=== PATIENT | male | born 1960 | race Caucasian/White ===

== ENCOUNTER → 2019-12-06 | Outpatient (CLI) | payer OTHER ==
[~2019-12-06] MED LIST: ALBIPROI INH; ALBU3IS INH; ALBU90OI61 INH; CRUTCH3 USE; GAVILAX17 GM PO; HYDACE7.5 PO; IBUP800 PO; OXYACE5T PO; PRED20 PO
[2019-12-06 17:42] LABS: BASOPHILS ABSOLUTE AUTO 0.08 K/mm3 (0.00-0.23); BASOPHILS PERCENT AUTO 1 % (0-2); EOSINOPHILS PERCENT AUTO 3 % (0-6); Hematocrit 45.5 % (37.0-53.0); Hemoglobin 15.3 g/dL (13.5-17.5); IMMATURE GRAN ABSOLUTE AUTO 0.02 K/mm3 (0.00-0.10); IMMATURE GRAN PERCENT AUTO 0 % (0-1); LYMPHOCYTES ABSOLUTE AUTO 2.09 K/mm3 (0.84-5.20); LYMPHOCYTES PERCENT AUTO 29 % (21-46); MONOCYTES ABSOLUTE AUTO 0.58 K/mm3 (0.16-1.47); MONOCYTES PERCENT AUTO 8 % (4-13); Mean Corpuscular HGB 29.9 pg (26.0-34.0); Mean Corpuscular HGB Conc 33.6 g/dL (31.5-36.5); Mean Corpuscular Volume 89 fL (80-100); Mean Platelet Volume 10.5 fL (9.1-12.4); NEUTROPHILS ABSOLUTE AUTO 4.19 K/mm3 (1.96-9.15); NEUTROPHILS PERCENT AUTO 59 % (41-73); Platelet Count 173 K/mm3 (150-400); RDW Standard Deviation 42.4 fL (35.1-46.3); Red Blood Cell Count 5.12 M/mm3 (4.30-5.90); White Blood Cell Count 7.16 K/mm3 (4.00-11.30)
[2019-12-06 17:53] LABS: Alanine Aminotransfer (ALT/SGP 42 U/L (12-78); Albumin, Blood 3.8 g/dL (3.4-5.0); Alk Phos 87 U/L (40-126); Anion Gap 11 mmol/L (6-16); Aspartate Aminotrans (AST/SGOT 22 U/L (12-37); Bilirubin, Total 0.3 mg/dL (0.1-1.0); Blood Urea Nitrogen 17 mg/dL (8-24); Bun/Creatinine Ratio 16.5 (12.0-20.0); CO2, Blood 26 mmol/L (21-32); Calcium, Blood 8.9 mg/dL (8.5-10.1); Chloride, Blood 103 mmol/L (98-108); Creatinine, Blood 1.03 mg/dL (0.60-1.20); Globulin, Blood 3.9 g/dL (2.2-4.0); Glomerular Filtration Rate >60 (60-); Glucose, Blood 125 mg/dL (70-99); Potassium, Blood 3.6 mmol/L (3.5-5.5); Sodium, Blood 140 mmol/L (136-145); Total Protein, Blood 7.7 g/dL (6.4-8.2)
[2019-12-06 18:35] LABS: International Normalized Ratio 0.96; Prothrombin Time Results 10.3 Sec (9.7-11.5)
== END ==
LOC: LAB EV 17:36 → LAB SHORT 17:36
PROVIDERS: Family Medicine
DX: Z01.818 Encounter for other preprocedural examination (principal)
CPT/HCPCS: 80053; 85025; 85610; 85730

== ENCOUNTER 2019-12-14 11:23 | Day surgery (SDC) | payer OTHER ==
[~2019-12-14] VITALS: Ht 175.3 cm; Wt 102.0 kg
--- NOTE | 2019-12-14 14:56 | NUR ---
12/14/19 1456 Leighann Elizondo REMOVED AT 1455.
--- NOTE | 2019-12-14 15:16 | NUR ---
12/14/19 1516 Leighann Elizondo PT TRANSFERED TO THE CHAIR WITH STAND BY ASSIST FROM SUDHIR. MADELINE. PT HAS OP LEG ELEVATED WITH A PILLOW UNDER THE KNEE AND POLAR UNIT IS ON AND RUNNING. PT DENIES NAUSEA AND IS TOLERATING PO CRACKERS AND FLUIDS WELL. PT COMPLAINS OF PAIN 04/21 AND STATES "I FEEL IT BUT IT DOESN'T REALLY HURT." RN TREATED PAIN WITH PO NORCO PER DR'S ORDERS (SEE EMAR). PT'S CALLED HOWEVER DID NOT ANSWER.
== END 2019-12-14 15:48 | disposition home or self-care (01) ==
LOC: ORSCSDS 11:23
PROVIDERS: Orthopaedic Surgery
PROC: 0SBD4ZZ Excision of Left Knee Joint, Percutaneous Endoscopic Approach (ICD-10-PCS; principal; 2019-12-14 12:30)
DX: S83.242A Other tear of medial meniscus, current injury, left knee, initial encounter (principal); M17.12 Unilateral primary osteoarthritis, left knee; M22.42 Chondromalacia patellae, left knee; I10 Essential (primary) hypertension; G47.33 Obstructive sleep apnea (adult) (pediatric); F17.210 Nicotine dependence, cigarettes, uncomplicated
CPT/HCPCS: A9270-GY; J0171; J0690; J1100; J2250; J2405; J2704; J2795; J3010; J7120

== ENCOUNTER 2020-01-16 10:20 | Emergency (ER) | payer OTHER ==
[~2020-01-16] VITALS: Ht 175.3 cm; Wt 102.1 kg
[2020-01-16] MEDS ORDERED: PROMETH-CODEIN 65 ML PO (10:36)
[2020-01-16] MEDS ORDERED: DOXYCYCLINE HY100 M1 PO (10:36)
[2020-01-16] MEDS ORDERED: Ventolin/Prove6.7 GM INH (10:37)
[2020-01-16 11:04] LABS: BASOPHILS ABSOLUTE AUTO 0.06 K/mm3 (0.00-0.23); BASOPHILS PERCENT AUTO 1 % (0-2); EOSINOPHILS ABSOLUTE AUTO 0.51 K/mm3 (0.00-0.68); EOSINOPHILS PERCENT AUTO 8 % (0-6); Hematocrit 46.3 % (37.0-53.0); IMMATURE GRAN ABSOLUTE AUTO 0.03 K/mm3 (0.00-0.10); IMMATURE GRAN PERCENT AUTO 1 % (0-1); LYMPHOCYTES PERCENT AUTO 24 % (21-46); MONOCYTES ABSOLUTE AUTO 0.61 K/mm3 (0.16-1.47); MONOCYTES PERCENT AUTO 10 % (4-13); Mean Corpuscular HGB 29.4 pg (26.0-34.0); Mean Corpuscular HGB Conc 32.4 g/dL (31.5-36.5); Mean Corpuscular Volume 91 fL (80-100); Mean Platelet Volume 10.3 fL (9.1-12.4); NEUTROPHILS ABSOLUTE AUTO 3.68 K/mm3 (1.96-9.15); NEUTROPHILS PERCENT AUTO 58 % (41-73); Platelet Count 180 K/mm3 (150-400); RDW Standard Deviation 43.7 fL (35.1-46.3); Red Blood Cell Count 5.11 M/mm3 (4.30-5.90); White Blood Cell Count 6.39 K/mm3 (4.00-11.30)
[2020-01-16 11:38] LABS: Alanine Aminotransfer (ALT/SGP 44 U/L (12-78); Albumin/Globulin Ratio 1.1 (0.8-1.8); Alk Phos 87 U/L (50-136); Anion Gap 6 mmol/L (6-16); Aspartate Aminotrans (AST/SGOT 25 U/L (12-37); Bilirubin, Total 0.3 mg/dL (0.1-1.0); Blood Urea Nitrogen 21 mg/dL (8-24); Bun/Creatinine Ratio 25.5 (12.0-20.0); CO2, Blood 27 mmol/L (21-32); Calcium, Blood 9.3 mg/dL (8.5-10.1); Chloride, Blood 108 mmol/L (98-108); Creatinine, Blood 0.82 mg/dL (0.60-1.20); Globulin, Blood 3.6 g/dL (2.2-4.0); Glomerular Filtration Rate >60 (60-); Glucose, Blood 95 mg/dL (70-99); Potassium, Blood 4.2 mmol/L (3.5-5.5); Sodium, Blood 141 mmol/L (136-145); Total Protein, Blood 7.6 g/dL (6.4-8.2); Troponin I <0.015 ng/mL (0.000-0.040)
[2020-01-16] MEDS ORDERED: Prednisone20 MG PO (14:05)
== END 2020-01-16 17:25 | disposition home or self-care (01) ==
LOC: ER 10:20
PROVIDERS: Emergency Medicine
DX: J18.9 Pneumonia, unspecified organism (principal); J98.01 Acute bronchospasm; F17.210 Nicotine dependence, cigarettes, uncomplicated
CPT/HCPCS: 36415; 71045; 80053; 83880; 84484; 85025; 93005; 93010; 94644; 94645; 94664; 96374; 99284-25; J2930

== ENCOUNTER 2020-05-25 14:19 | Inpatient (IN) | payer OTHER ==
[~2020-05-25] VITALS: Ht 175.3 cm; Wt 102.1 kg
[~2020-05-25 14:19] MED LIST changes: +ALBU2.5V5 NEB; +DOXYCYCLINE HY100 M1 PO; +FLUT1DIS5 INH; +METF500 PO; +PROMETH-CODEIN 65 ML PO; +Prednisone10 MG PO; +Prednisone20 MG PO; +Ventolin/Prove6.7 GM INH
[2020-05-25 15:26] LABS: BASOPHILS ABSOLUTE AUTO 0.06 K/mm3 (0.00-0.23); BASOPHILS PERCENT AUTO 1 % (0-2); EOSINOPHILS ABSOLUTE AUTO 0.48 K/mm3 (0.00-0.68); EOSINOPHILS PERCENT AUTO 7 % (0-6); Hematocrit 46.1 % (37.0-53.0); Hemoglobin 14.6 g/dL (13.5-17.5); IMMATURE GRAN ABSOLUTE AUTO 0.03 K/mm3 (0.00-0.10); IMMATURE GRAN PERCENT AUTO 1 % (0-1); LYMPHOCYTES ABSOLUTE AUTO 1.34 K/mm3 (0.84-5.20); LYMPHOCYTES PERCENT AUTO 21 % (21-46); MONOCYTES ABSOLUTE AUTO 0.56 K/mm3 (0.16-1.47); MONOCYTES PERCENT AUTO 9 % (4-13); Mean Corpuscular HGB 28.9 pg (26.0-34.0); Mean Corpuscular HGB Conc 31.7 g/dL (31.5-36.5); Mean Corpuscular Volume 91 fL (80-100); Mean Platelet Volume 10.1 fL (9.1-12.4); NEUTROPHILS ABSOLUTE AUTO 4.08 K/mm3 (1.96-9.15); NEUTROPHILS PERCENT AUTO 62 % (41-73); Platelet Count 168 K/mm3 (150-400); RDW Coefficient Variation 13.2 % (11.7-14.2); RDW Standard Deviation 44.7 fL (35.1-46.3); Red Blood Cell Count 5.06 M/mm3 (4.30-5.90); White Blood Cell Count 6.55 K/mm3 (4.00-11.30)
[2020-05-25 15:40] LABS: Base Excess Venous 0.9 mmol/L; Bicarbonate Venous 24.5 mmol/L (24.0-30.0); PCO2 Venous 47.8 mmHg (38-42); PO2 Venous 72.3 mmHg (38-42); pH Blood Venous 7.35 (7.34-7.37)
[2020-05-25 15:43] LABS: Alanine Aminotransfer (ALT/SGP 34 U/L (12-78); Albumin, Blood 3.7 g/dL (3.4-5.0); Albumin/Globulin Ratio 1.1 (0.8-1.8); Alk Phos 91 U/L (50-136); Anion Gap 4 mmol/L (6-16); Aspartate Aminotrans (AST/SGOT 21 U/L (12-37); Bilirubin, Total 0.4 mg/dL (0.1-1.0); Blood Urea Nitrogen 20 mg/dL (8-24); Bun/Creatinine Ratio 21.5 (12.0-20.0); CO2, Blood 28 mmol/L (21-32); Calcium, Blood 8.6 mg/dL (8.5-10.1); Chloride, Blood 108 mmol/L (98-108); Creatinine, Blood 0.93 mg/dL (0.60-1.20); Globulin, Blood 3.3 g/dL (2.2-4.0); Glomerular Filtration Rate >60 (60-); Glucose, Blood 90 mg/dL (70-99); Potassium, Blood 3.6 mmol/L (3.5-5.5); Sodium, Blood 140 mmol/L (136-145); Troponin I <0.015 ng/mL (0.000-0.040)
[2020-05-25 19:52] LABS: Source, Urine Voided
[2020-05-25 20:06] LABS: Appearance, Urine Clear (Clear); Bilirubin, Urine Neg (Neg); Blood, Urine Neg (Neg); Color, Urine Yellow (P-Yellow); Glucose Qualitative, Urine Neg (Neg); Ketones, Urine Neg (Neg); Leukocyte Esterase, Urine Neg (Neg); Nitrite, Urine Neg (Neg); Protein, Urine 1+ (Neg); Specific Gravity, Urine 1.015 (1.003-1.022); Urobilinogen, Urine NORM (Normal); pH, Urine 6.5 (5.0-8.0)
[2020-05-25 22:46] LABS: Adenovirus Not Detected (NOT DETECT); Bordetella pertussis Not Detected (NOT DETECT); Chlamydophila pneumoniae Not Detected (NOT DETECT); Coronavirus 229E Not Detected (NOT DETECT); Coronavirus HKU1 Not Detected (NOT DETECT); Coronavirus NL63 Not Detected (NOT DETECT); Coronavirus OC43 Not Detected (NOT DETECT); Human Metapneumovirus Not Detected (NOT DETECT); Human Rhinovirus/Enterovirus Not Detected (NOT DETECT); Influenza A/2009-H1 Not Detected (NOT DETECT); Influenza A/H1 Not Detected (NOT DETECT); Influenza A/H3 Not Detected (NOT DETECT); Influenza B Not Detected (NOT DETECT); Mycoplasma pneumoniae Not Detected (NOT DETECT); Parainfluenza Virus 1 Not Detected (NOT DETECT); Parainfluenza Virus 2 Not Detected (NOT DETECT); Parainfluenza Virus 3 Not Detected (NOT DETECT); Parainfluenza Virus 4 Not Detected (NOT DETECT); Respiratory Syncytial Virus Not Detected (NOT DETECT)
[2020-05-26 05:07] LABS: Hemoglobin 14.4 g/dL (13.5-17.5); Mean Corpuscular HGB 29.1 pg (26.0-34.0); Mean Corpuscular Volume 91 fL (80-100); Mean Platelet Volume 10.3 fL (9.1-12.4); Platelet Count 179 K/mm3 (150-400); RDW Standard Deviation 43.3 fL (35.1-46.3); Red Blood Cell Count 4.95 M/mm3 (4.30-5.90); White Blood Cell Count 7.22 K/mm3 (4.00-11.30)
[2020-05-26 05:57] LABS: Anion Gap 7 mmol/L (6-16); Blood Urea Nitrogen 22 mg/dL (8-24); Bun/Creatinine Ratio 22.4 (12.0-20.0); CO2, Blood 23 mmol/L (21-32); Calcium, Blood 8.6 mg/dL (8.5-10.1); Chloride, Blood 110 mmol/L (98-108); Creatinine, Blood 0.98 mg/dL (0.60-1.20); Glomerular Filtration Rate >60 (60-); Glucose, Blood 190 mg/dL (70-99); Potassium, Blood 4.2 mmol/L (3.5-5.5); Sodium, Blood 140 mmol/L (136-145)
--- NOTE | 2020-05-26 07:05 | NUR ---
Rn summary: Patient is alert and oriented. Pt is up independantly in room. Pt is on 2 liters of O2 as needed during the night. Patient lung sound with expiratory wheezes thoughout, cough with some thin sputum. Culture sent but no adequate. Pt BP better this am, has not needed apresoline. Pt has denied pain and has rested when undisturbed. Pt states he is not diabetic but that his sugars go up with solumedrol. Call light in reach.
--- NOTE | 2020-05-26 14:26 | NUR ---
patient needs a sputum sample, insentive spirometer given from roll slicing machine tender to help loosen sputum for a sample. admisson reson COPD
--- NOTE | 2020-05-26 19:18 | NUR ---
SHIFT SUMMARY: NO ACUTE EVENTS THIS SHIFT. DENIED PAIN. BG < 200, NO INSULIN COVEREAGE NEEDED. WEANED OFF OXYGEN, O2 SAT > 90% ON ROOM AIR, DENIED COTTO. AMBULATING INDEPENDENTLY. PLAN IS POSSIBLE D/C TOMORROW.
--- NOTE | 2020-05-27 04:52 | NUR ---
SHIFT SUMMARY: "CHARLENE" IS A&OX4, INDEPENDENT IN THE ROOM. HE HAS BEEN WALKING THE HALLWAYS. VSS, NO ACUTE EVENTS OVERNIGHT. ORA. HE USES HIS CALL LIGHT APPROPRIATELY. HE DENIES ANY DIFFICULTIES WITH ELIMINATION, IS TOLERATING PO INTAKE WELL. WILL REPORT TO DAY SHIFT RN.
[2020-05-27] MEDS ORDERED: BENZ100A PO (10:59)
[2020-05-27] MEDS ORDERED: Q-Tussin100 MG/5 M PO (11:00)
[2020-05-27] MEDS ORDERED: VISBIOME PROBIOTIC PO (11:06)
[2020-05-27] MEDS ORDERED: LEVFLO500 PO (11:07)
[2020-05-27] MEDS ORDERED: PRED20 PO (11:09)
--- NOTE | 2020-05-27 11:58 | NUR ---
DISCHARGE PT VERBALIZED UNDERSTANDING OF THE DC INSTRUCTIONS, THE PT APPEARED TO BE BREATHING EASILY AT THE TIME OF DC, THE PT WAS TRANSFERED VIA WHEELCHAIR ACCOMPANIED BY THE FIRST ASSISTANT, PTS PRESCRIPTIONS FAXED TO [facility] ON [facility] REQUESTED, THE PT WAS REMINED TO CALL ON FRIDAY FOR A FOLLOW UP APPIONTMENT TO HIS PCP
== END 2020-05-27 11:30 | disposition home or self-care (01) | DRG 189 ==
LOC: ER 14:19 → MEDS 17:01
PROVIDERS: Emergency Medicine; ADMIT Internal Medicine
DX: J96.01 Acute respiratory failure with hypoxia (principal); J44.1 Chronic obstructive pulmonary disease with (acute) exacerbation; J44.0 Chronic obstructive pulmonary disease with (acute) lower respiratory infection; J20.8 Acute bronchitis due to other specified organisms; F17.210 Nicotine dependence, cigarettes, uncomplicated; Z68.33 Body mass index [BMI] 33.0-33.9, adult; E66.9 Obesity, unspecified; I10 Essential (primary) hypertension; B96.1 Klebsiella pneumoniae [K. pneumoniae] as the cause of diseases classified elsewhere; R73.9 Hyperglycemia, unspecified; T38.0X5A Adverse effect of glucocorticoids and synthetic analogues, initial encounter; Y92.9 Unspecified place or not applicable; Z57.2 Occupational exposure to dust
CPT/HCPCS: 0099U; 36415; 71045; 80048; 80053; 82803; 82947; 83880; 84145; 84484; 85025; 85027; 87070; 87077; 87186; 87205; 93005; 93010; 94640; 94760; 96361; 96374; 99285-25; A9270-GY; J0456; J1650; J2930; J7030; J7050

== ENCOUNTER 2022-03-24 15:07 | Inpatient (IN) | payer SELFPAY ==
[~2022-03-24] VITALS: Ht 175.3 cm; Wt 90.5 kg
[~2022-03-24 15:07] MED LIST changes: +BENZ100A PO; +LEVFLO500 PO; +Q-Tussin100 MG/5 M PO; +VISBIOME PROBIOTIC PO
[2022-03-24 15:47] LABS: BASOPHILS ABSOLUTE AUTO 0.01 K/mm3 (0.00-0.23); BASOPHILS PERCENT AUTO 0 % (0-2); EOSINOPHILS PERCENT AUTO 0 % (0-6); Hematocrit 47.3 % (37.0-53.0); Hemoglobin 15.7 g/dL (13.5-17.5); IMMATURE GRAN ABSOLUTE AUTO 0.13 K/mm3 (0.00-0.10); IMMATURE GRAN PERCENT AUTO 1 % (0-1); LYMPHOCYTES ABSOLUTE AUTO 0.69 K/mm3 (0.84-5.20); LYMPHOCYTES PERCENT AUTO 7 % (21-46); MONOCYTES ABSOLUTE AUTO 0.23 K/mm3 (0.16-1.47); MONOCYTES PERCENT AUTO 2 % (4-13); Mean Corpuscular HGB 29.6 pg (26.0-34.0); Mean Corpuscular HGB Conc 33.2 g/dL (31.5-36.5); Mean Corpuscular Volume 89 fL (80-100); Mean Platelet Volume 10.4 fL (9.1-12.4); NEUTROPHILS PERCENT AUTO 89 % (41-73); Platelet Count 194 K/mm3 (150-400); RDW Coefficient Variation 13.2 % (11.7-14.2); RDW Standard Deviation 43.3 fL (35.1-46.3); Red Blood Cell Count 5.31 M/mm3 (4.30-5.90); White Blood Cell Count 9.96 K/mm3 (4.00-11.30)
[2022-03-24] MEDS ORDERED: FLUT.05NI (15:50)
[2022-03-24 16:08] LABS: Albumin, Blood 3.5 g/dL (3.4-5.0); Albumin/Globulin Ratio 0.9 (0.8-1.8); Bilirubin, Total 0.3 mg/dL (0.1-1.0); Bun/Creatinine Ratio 32.9 (12.0-20.0); Calcium, Blood 8.9 mg/dL (8.5-10.1); Creatinine, Blood 0.7 mg/dL (0.60-1.20); Globulin, Blood 3.8 g/dL (2.2-4.0); Potassium, Blood 3.6 mmol/L (3.5-5.5); Total Protein, Blood 7.3 g/dL (6.4-8.2)
[2022-03-24 17:01] LABS: Anti-Xa UFH, PHA Monitoring <0.10 IU/mL; International Normalized Ratio 1.05
--- NOTE | 2022-03-24 23:13 | NUR ---
RECIEVED REPORT FROM PRASANTH PEGUERO IN ED. PT TRANFERED TO UNIT AT APPROXIMATELY 2230. ABLE TO STAND AND AMBULATE TO BED WITHOUT DIFFICULTY. VITAL SIGNS RECORDED IN CHART AT THIS TIME. PT IS A&OX4. COMPLAINS OF SLIGHT CHEST PAIN AT 3/10 WHEN TRANSFERED. AFTER SETTING PT COMPLAINING OF SOB, ROSS FROM RESPIRTORY THERAPY IN TO GIVE PT TREATMENT, PT REPORTS IMPROVED SOB. PT BEGINS COMPLAINING OF CHEST PAIN AT APPROXIMATELY 2210. MEDICATED FOR NITRO X 3 GIVEN, MORPHINE GIVEN ALL WIHTOUT RELIEF. PT PLACED ON 2 LPM O2 DUE TO O2 SATS BEING AT 89% ON RA.
--- NOTE | 2022-03-24 23:38 | NUR ---
DR. STEPHENS HOSPITALIST ON CALLED INFORMED OF PT CONTINUED COMPLAINT OF PAIN. INFROMED TO GET AN EKG AND CALL CARDIOLOGEST JOINTER MACHINE OPERATOR DUE TO CHEST PAIN NOT IMPROVING. EKG OBTAINED. PT REPORTS PAIN IN CHEST IS NOT 2-3/10, IMPROVED FROM EARLIER. WILL CONTINUE TO MONITOR.
--- NOTE | 2022-03-25 00:12 | NUR ---
CARDIOLOGY CONSULT CALLED IN TO ANSWER SERVICE.
[2022-03-25 03:33] LABS: Hematocrit 41.2 % (37.0-53.0); Hemoglobin 13.6 g/dL (13.5-17.5); Mean Corpuscular HGB 29.2 pg (26.0-34.0); Mean Corpuscular Volume 89 fL (80-100); Mean Platelet Volume 10.2 fL (9.1-12.4); Platelet Count 167 K/mm3 (150-400); RDW Coefficient Variation 13.3 % (11.7-14.2); RDW Standard Deviation 43.5 fL (35.1-46.3); Red Blood Cell Count 4.65 M/mm3 (4.30-5.90); White Blood Cell Count 9.85 K/mm3 (4.00-11.30)
[2022-03-25 03:56] LABS: Magnesium, Blood 2.4 mg/dL (1.6-2.4); Very Low Density Lipoprot Chol 19 mg/dL (6-32)
[2022-03-25 03:57] LABS: Anion Gap 7 mmol/L (6-16); Blood Urea Nitrogen 24 mg/dL (8-24); CHOL/HDL RATIO 3.9; CO2, Blood 28 mmol/L (21-32); Calcium, Blood 8.5 mg/dL (8.5-10.1); Chloride, Blood 106 mmol/L (98-108); Cholesterol 155 mg/dL (50-200); Creatinine, Blood 0.75 mg/dL (0.60-1.20); Glomerular Filtration Rate 101 (60-); Glucose, Blood 133 mg/dL (70-99); HDL Cholesterol 40 mg/dL (>39); LDL/HDL RATIO 2.4; Low Density Lipoprotein Chol 96 mg/dL (0-110); Potassium, Blood 3.7 mmol/L (3.5-5.5); Sodium, Blood 141 mmol/L (136-145); Triglycerides 97 mg/dL (30-160)
--- NOTE | 2022-03-25 04:58 | NUR ---
PT REPORTS THAT HE HAS NO CHEST PAIN AT THIS TIME. MAINTAINING O2 SATS AT 93% ON RA.
--- NOTE | 2022-03-25 08:54 | NUR ---
Echocardiogram completed.
[2022-03-25 11:14] LABS: Influenza A, PCR NEGATIVE (NEGATIVE); Influenza B, PCR NEGATIVE (NEGATIVE); Resp Syncytial Virus, PCR NEGATIVE (NEGATIVE); SARS-Cov-2 (COVID-19) PCR, MMC NEGATIVE (NEGATIVE)
--- NOTE | 2022-03-25 13:25 | NUR ---
PT TO [facility]ART CENTER FOR ANGIOGRAM.
--- NOTE | 2022-03-25 15:19 | NUR ---
PT RETURNS FROM HEART CENTER POST ANGIOGRAM. SEE FLOW SHEET FOR DETAILS. PT ARRIVES WITH R RADIAL SITE, TR BAND IN PLACE W/10 CC AIR. SITE WNL, NO SIGNS OF HEMATOMA, SOFT AND NONTENDER TO PALPATION. POST PROCEDURE VS MONITORING IN PLACE.
--- NOTE | 2022-03-25 18:35 | NUR ---
SHIFT SUMMARY: PT CONTINUES A&Ox4, MAINTAINS O2 SATS >93% ON RA, SR ON MONITOR. TR BAND CONTINUES IN PLACE TO R RADIAL, IS COMPLETELY DEFLATED OF APPROX 1829, SITE REMAINS STABLE W/NO SIGN OF HEMATOMA. PT REPORTS NO CHEST PAIN SINCE RETURNING TO ROOM FROM HEART CENTER. CURRENTLY, PT RESTING QUIETLY IN ROOM. WILL CONTINUE TO MONITOR AND TREAT ACCORDINGLY UNTIL CHANGE OF SHIFT.
--- NOTE | 2022-03-25 19:44 | NUR ---
ASSUMED PT CARE FORM LAURA PEGUERO ON DAY SHIFT. PT IS A&OX4. SITTING UP IN BED WATCHING TV. ABLE TO AMBULATE TO BATHROOM TO VOID WITHOUT DIFFICULTY. RIGHT RADIAL SITE IS C/D/I, TR BAND IN PLACE BUT DEFLATED. AREA AROUND SITE IS SOFT TO TOUCH, NO DRAINAGE/INDERATION/SWELLING NOTED. CALL LIGHT IN REACH.
--- NOTE | 2022-03-25 21:05 | NUR ---
PT'S GROIN SITE REMAINS UNCHANGED. NO DRAINAGE/INCREASED INDERATION. SCROTUM REMAINS SAME SIZE.
--- NOTE | 2022-03-25 21:07 | NUR ---
TR BAND ON RIGHT RADIAL SITE REMOVED, TRANSPARENT WINDOW DRESSING PLACED. NO DRAINAGE NOTED. PIN HEAD SIZE BRUIZE NOTED AT INSERTION SITE, WILL MONITOR. MEDICATED WITH TYLENOL FOR PAIN.
--- NOTE | 2022-03-26 00:18 | NUR ---
PT REPORTS "I JUST DON'T FEEL RIGHT". DENIES ANY PAIN, CHEST PAIN, SOB, NAUSEA. VITAL SIGNS ARE UNREMARKABLE. TELEMETRY DOES NOT SHOW ANY RECENT CHANGES. PT STATES "I THINK I FEEL CLOSTRAPHOBIC". PT COUGHING, RESPIRATORY THERAPY CALLED TO NEB TREATMENT. MICHELLE CHECKS INTACT, PERRLA, EQUAL MOVMENT. PT UP TO SIT IN CHAIR WITH STEADY GIAT AND POSTURE ERECT. RIGHT RADIAL SITES INTACT WITHOUT ANY DRAINAGE OR INDERATION NOTED, PULSE STRONG AND PALPABLE. WILL MONINITOR.
--- NOTE | 2022-03-26 01:00 | NUR ---
CLARIFICATION WITH DR. EDNA AHUMADA GTT IS TO REMAIN STOPPED AFTER SURGERY AND ANTI-XI LAB CAN BE DC'D FOR THE A.M.
[2022-03-26 04:36] LABS: Bun/Creatinine Ratio 26.8 (12.0-20.0); Calcium, Blood 8.5 mg/dL (8.5-10.1); Creatinine, Blood 0.82 mg/dL (0.60-1.20)
--- NOTE | 2022-03-26 06:52 | NUR ---
PT HAS BEEN SLEEPING COMFORTABLY IN CHAIR SINCE MIDNIGHT. CONTINUES TO STATE "I FEEL FUNNY" BUT UNABLE TO DISCRIBE HOW. VITAL SIGNS REMAIN STABLE. RIGHT RADIAL SITE REMAINS INTACT WITHOUT ANY DRAINAGE OR SWELLING NOTED. PT WOKE UP COUGHING AND COMPLAINS OF SOB. O2 SATS AT 89% PLACED ON NC AT 4 LPM TO GET O2 UP TO 92%. RESPIRATORY THERAPY CALLED AND GIVEN NEB TREATMENT NOW.
[2022-03-26] MEDS ORDERED: ATOR40TA PO (10:28)
[2022-03-26] MEDS ORDERED: CLOP75 PO (10:28)
[2022-03-26] MEDS ORDERED: LISI5 PO (10:32)
[2022-03-26] MEDS ORDERED: GUAI600T33 PO (10:32)
[2022-03-26] MEDS ORDERED: FLUTICASONE-SA1 EAC1 INH (10:32)
[2022-03-26] MEDS ORDERED: METO25 PO (10:33)
--- NOTE | 2022-03-26 12:20 | NUR ---
DISCHARGE: PT HAS BEEN EVALUATED AND CLEARED FOR DISCHARGE BY DR CARCAMO. HOME O2 EVAL COMPLETED BY RT, SEE ASSESSMENT NOTE FOR DETAILS. PT PROVIDED WITH AND INSTRUCTED ON FLUTTER THERAPY DEVICE. PT DEMONSTRATES PROPER USAGE OF DEVICE. IV ACCESS DC'd WNL. PT PROVIDED WITH DC PAPERWORK AND INSTRUCTIONS, VERBALIZES UNDERSTANDING. PT ESCORTED FROM UNIT VIA W/C W/OUT INCIDENT.
== END 2022-03-26 12:23 | disposition home or self-care (01) | DRG 247 ==
LOC: ER 15:07 → PCU 20:14
PROVIDERS: Emergency Medicine; Nurse Practitioner Acute Care; Physician Assistant; ADMIT Internal Medicine
PROC: 027034Z Dilation of Coronary Artery, One Artery with Drug-eluting Intraluminal Device, Percutaneous Approach (ICD-10-PCS; principal; 2022-03-25)
PROC: 4A023N7 Measurement of Cardiac Sampling and Pressure, Left Heart, Percutaneous Approach (ICD-10-PCS; 2022-03-25)
PROC: B2111ZZ Fluoroscopy of Multiple Coronary Arteries using Low Osmolar Contrast (ICD-10-PCS; 2022-03-25)
PROC: B2151ZZ Fluoroscopy of Left Heart using Low Osmolar Contrast (ICD-10-PCS; 2022-03-25)
PROC: B240ZZ3 Ultrasonography of Single Coronary Artery, Intravascular (ICD-10-PCS; 2022-03-25)
DX: I21.4 Non-ST elevation (NSTEMI) myocardial infarction (principal); I25.10 Atherosclerotic heart disease of native coronary artery without angina pectoris; I10 Essential (primary) hypertension; Z20.822 Contact with and (suspected) exposure to COVID-19; E78.5 Hyperlipidemia, unspecified; R73.03 Prediabetes; Z71.6 Tobacco abuse counseling; J44.9 Chronic obstructive pulmonary disease, unspecified; F17.210 Nicotine dependence, cigarettes, uncomplicated; Z79.52 Long term (current) use of systemic steroids; Z79.899 Other long term (current) drug therapy; Z98.890 Other specified postprocedural states
CPT/HCPCS: 0241U; 36415; 71045; 71046; 76937; 80048; 80053; 80061; 83036; 83735; 84484; 85025; 85027; 85347; 85520; 85610; 92978; 93005; 93010; 93306; 93458; 94640; 94664; 94760; 94761; 94762; 96365; 96366; 96375; 99152; 99153; 99285-25; A9270; C1725; C1753; C1769; C1874; C1887; C1894; C9600; J1644; J2250; J2270; J2405; J3010; J7030; J7040; J7512; Q9967